=== PATIENT | male | born 1980 ===

== ENCOUNTER 2018-05-28 16:09 | Emergency (ER) | payer BC, OTHER ==
[2018-05-28 16:09] VITALS: BMI 22.0
[2018-05-28 16:20] VITALS: BP 156/101; PULSE 73; RESP 18; TEMP 98.3; O2SAT 100
[2018-05-28] MEDS ORDERED: Lidocaine 1% (10 ml) Inj INFIL STA (16:29)
[2018-05-28] MEDS ORDERED: Tdap Vaccine 0.5 ml Vial (10-64 yrs) IM ONE ×2 (16:29→16:55)
[2018-05-28] MEDS ORDERED: Lidocaine 1% Inj (20ml) ONE (16:37)
--- NOTE | 2018-05-28 16:50 | ED PDOC ---
Upper Extremity Pain/Injury Time Seen by Provider: 05/28/18 16:22 Chief Complaint (Nursing): Abnormal Skin Integrity Chief Complaint (Provider): Abnormal Skin Integrity History Per: Patient History/Exam Limitations: no limitations Additional Complaint(s): 37 y/o male presents to the ED complaining of right hand laceration onset earlier today. Patient states that he was cleaning dishes and he cut his right hand. He is unsure if he has had his tetanus shot. Past Medical History Reviewed: Historical Data, Nursing Documentation, Vital Signs Vital Signs: Last Vital Signs Temp 98.3 F 05/28/18 16:18 Pulse 73 05/28/18 16:18 Resp 18 05/28/18 16:18 BP 156/101 H 05/28/18 16:18 Pulse Ox 100 05/28/18 16:18 - Medical History PMH: No Chronic Diseases - Surgical History Surgical History: No Surg Hx - Family History Family History: States: Unknown Family Hx - Living Arrangements Living Arrangements: With Family - Social History Current smoker - smoking cessation education provided: No - Immunization History Hx Tetanus Toxoid Vaccination: No (unknown) Hx Influenza Vaccination: No Hx Pneumococcal Vaccination: No - Home Medications Home Medications: Ambulatory Orders Medication Instructions Recorded Naftifine HCl [Naftin] 1 cre TP DAILY #1 tub 03/02/18 Cephalexin [Keflex] 500 mg PO BID #14 capsule 05/28/18 - Allergies Allergies/Adverse Reactions: Allergies Allergy/AdvReac Type Severity Reaction Status Date / Time No Known Allergies Allergy Verified 01/21/16 14:41 Review of Systems ROS Statement: Except As Marked, All Systems Reviewed And Found Negative Musculoskeletal: Positive for: Hand Pain (right pinky) Physical Exam - Reviewed Nursing Documentation Reviewed: Yes Vital Signs Reviewed: Yes - Physical Exam Appears: Positive for: Well, Non-toxic, No Acute Distress Head Exam: Positive for: ATRAUMATIC, NORMOCEPHALIC Skin: Positive for: Normal Color, Warm, DRY Eye Exam: Positive for: Normal appearance Cardiovascular/Chest: Negative for: Murmur, Bradycardia, Tachycardia Respiratory: Negative for: Accessory Muscle Use, Respiratory Distress Extremity: Positive for: Normal ROM, Other (2.5 cm curvy linear laceration to medial right hand at the base of 5th digit.). Negative for: Pedal Edema, Deformity Neurologic/Psych: Positive for: Alert, Oriented. Negative for: Motor/Sensory Deficits - ECG O2 Sat by Pulse Oximetry: 100 (RA) Pulse Ox Interpretation: Normal Medical Decision Making Medical Decision Making: Time: 16:29 Initial Impression: right hand laceration Initial Plan: --lidocaine --Tetanus Time: 16:50 1 cc lidocaine was used to numb the area patient states he feels pain. He refused additional pain medication. Discussed with patient the risk vs benefit of suture and possible skin abnormality without suture. Patient refused to be anesthetized further; he is denying sutures at this time. Time: 17:25 Wound irrigated, steri strips used and clean dressing was placed. Scribe Attestation: Documented by Mandeep Torres, acting as a scribe for Adriana West PA-C. Provider Scribe Attestation: All medical record entries made by the Scribe were at my direction and personally dictated by me. I have reviewed the chart and agree that the record accurately reflects my personal performance of the history, physical exam, medical decision making, and the department course for this patient. I have also personally directed, reviewed, and agree with the discharge instructions and disposition. Disposition - Clinical Impression Clinical Impression: Hand laceration, Tetanus toxoid vaccination administered at current visit - Patient ED Disposition Is Patient to be Admitted: No - Disposition Disposition: Routine/Home Disposition Time: 17:30 Condition: STABLE Prescriptions: Cephalexin [Keflex] 500 mg PO BID #14 capsule Instructions: Wound Care (DC) Forms: [employer] (Welsh)
== END 2018-05-28 17:34 | disposition home or self-care (01) ==
LOC: H.ER 16:09
DX: S61.411A Laceration without foreign body of right hand, initial encounter (principal); W25.XXXA Contact with sharp glass, initial encounter; Y92.89 Other specified places as the place of occurrence of the external cause

== ENCOUNTER 2018-06-23 11:09 | Emergency (ER) | payer BC ==
[2018-06-23 11:09] VITALS: BMI 22.0
--- NOTE | 2018-06-23 12:11 | ED PDOC ---
HPI: Male Pain Time Seen by Provider: 06/23/18 12:09 Chief Complaint (Nursing): Groin Pain Chief Complaint (Provider): Groin Lesion - Painful History Per: Patient History/Exam Limitations: no limitations Onset/Duration Of Symptoms: Days (two) Current Symptoms Are (Timing): Still Present Severity: Mild Quality Of Discomfort: Sharp, Dull, Burning, "Pain" Associated Symptoms: denies: Fever, Chills, Nausea, Vomiting Past Medical History Reviewed: Historical Data, Nursing Documentation, Vital Signs Vital Signs: Last Vital Signs Temp 98.4 F 06/23/18 11:28 Pulse 70 06/23/18 11:28 Resp 20 06/23/18 11:28 BP 172/95 H 06/23/18 11:28 Pulse Ox 99 06/23/18 11:28 - Medical History PMH: Denies: Chronic Kidney Disease - Family History Family History: States: Unknown Family Hx - Immunization History Hx Tetanus Toxoid Vaccination: No (unknown) Hx Influenza Vaccination: No Hx Pneumococcal Vaccination: No - Home Medications Home Medications: Ambulatory Orders Medication Instructions Recorded Naftifine HCl [Naftin] 1 cre TP DAILY #1 tub 03/02/18 Cephalexin [Keflex] 500 mg PO BID #14 capsule 05/28/18 Doxycycline Monohydrate 100 mg PO BID #42 tablet 06/23/18 - Allergies Allergies/Adverse Reactions: Allergies Allergy/AdvReac Type Severity Reaction Status Date / Time No Known Allergies Allergy Verified 06/23/18 11:35 Review of Systems ROS Statement: Except As Marked, All Systems Reviewed And Found Negative Constitutional: Negative for: Fever, Chills, Sweats Genitourinary Male: Positive for: Dysuria, Other (lesion on the left groin r egion with induration beneath) Physical Exam - Physical Exam Pulses-Carotid (L): 2+ Pulses-Carotid (R): 2+ Pulses-Radial (L): 2+ Pulses-Radial (R): 2+ Male Genital Exam: Positive for: normal genitalia, no hernia, inguinal tenderness (left inguinal tenderness with no signs of hernia; small lesion on indurated and enlarged lymph node in left inguinal crease. ). Negative for: erythema, hernia mass, scrotum tenderness (R), scrotum tenderness (L), testicular tenderness (R), testicular tenderness (L), urethral discharge Back: Positive for: Normal Inspection. Negative for: L CVA Tenderness, R CVA Tenderness Lymphatic: Positive for: Inguinal Node Tenderness (see note above - genitalia) - Laboratory Results Result Diagrams: 06/23/18 14:45 06/23/18 14:45 - ECG O2 Sat by Pulse Oximetry: 99 Medical Decision Making Medical Decision Making: wound culture RPR chyl/gc pRESUMPTIVE LGV and treated for gc/chly in ED and Doxy BID x21 days for LGV Follow up in Clinic in one week Disposition - Clinical Impression Clinical Impression: STI (sexually transmitted infection), LGV (lymphogranuloma venereum) - Patient ED Disposition Is Patient to be Admitted: No Doctor Will See Patient In The: Office Counseled Patient/Family Regarding: Studies Performed, Diagnosis, Need For Followup - Disposition Referrals: [facility] [Outside] Disposition: Routine/Home Disposition Time: 15:28 Condition: STABLE Prescriptions: Doxycycline Monohydrate 100 mg PO BID #42 tablet Forms: [employer] [place] (Pashto)
[2018-06-23 13:41] LABS: URINE BILIRUBIN NEGATIVE (NEGATIVE); URINE BLOOD NEGATIVE (NEGATIVE); URINE CLARITY CLEAR (Clear); URINE COLOR YELLOW (YELLOW); URINE GLUCOSE (UA) NEG (NEGATIVE); URINE LEUKOCYTE ESTERASE NEG Leu/uL (Negative); URINE PROTEIN NEGATIVE (NEGATIVE); URINE UROBILINOGEN 0.2-1.0 mg/dL (0.2-1.0)
[2018-06-23] MEDS ORDERED: cefTRIAXone (Rocephin) 250 mg Inj IM ONE (14:15)
[2018-06-23] MEDS ORDERED: cefTRIAXone (Rocephin) 250 mg Inj ONE (14:39)
[2018-06-23 14:49] LABS: BASO # 0.1 K/uL (0.0-0.2); BASO % 0.9 % (0.0-2.0); EOS # 0.1 K/uL (0.0-0.7); EOS % 2.2 % (0.0-4.0); HEMOGLOBIN 13.9 g/dL (12.0-18.0); LYMPH # 2.4 K/uL (1.0-4.3); LYMPH % 37.2 % (20.0-40.0); MEAN CELL VOLUME 86.6 fl (80.0-94.0); MEAN CORPUSCULAR HEMOGLOBIN 28.8 pg (27.0-31.0); MEAN CORPUSCULAR HGB CONC 33.2 g/dL (33.0-37.0); MEAN PLATELET VOLUME 9.4 fl (7.2-11.7); MONO # 0.6 K/uL (0.0-0.8); MONO % 8.9 % (0.0-10.0); NEUT # 3.2 K/uL (1.8-7.0); NEUT % 50.8 % (50.0-75.0); NRBC % 0.1 % (0.0-0.0); RBC 4.83 Mil/uL (4.40-5.90); RED CELL DISTRIBUTION WIDTH 12.7 % (11.5-14.5); WHITE BLOOD COUNT 6.3 K/uL (4.8-10.8)
[2018-06-23 15:04] LABS: ALB/GLOB RATIO 1.2 (1.0-2.1); ALT/SGPT 29 U/L (21-72); AST/SGOT 25 U/L (17-59); BLOOD UREA NITROGEN 17 mg/dl (9-20); GFR NON-AFRICAN AMERICAN > 60
[2018-06-23 15:57] VITALS: BP 156/98; PULSE 67; RESP 18; TEMP 98.3; O2SAT 100
== END 2018-06-23 16:20 | disposition home or self-care (01) ==
LOC: H.ER 11:09
DX: A55 Chlamydial lymphogranuloma (venereum) (principal)
CPT/HCPCS: 80053; 81003; 85025; 86592; 87070; 87086; 87491; 87591; 96372; 99283; J0696